=== PATIENT | male | born 1990 | race Caucasian/White ===

== ENCOUNTER 2024-07-12 18:29 | Emergency (ER) | payer OTHER ==
[2024-07-12] MEDS: Acetaminophen 325 MG Tab PO ONE (19:54)
[2024-07-12] MEDS: Diphtheria,Pertussis(Acell),Tetanus Vaccine 0.5 ML Syringe IM ONE (19:55)
== END 2024-07-12 22:30 | disposition home or self-care (01) ==
LOC: JD.ED 18:29
DX: S62.002A Unspecified fracture of navicular [scaphoid] bone of left wrist, initial encounter for closed fracture (principal); S01.81XA Laceration without foreign body of other part of head, initial encounter; Z23 Encounter for immunization; V28.09XA Other motorcycle driver injured in noncollision transport accident in nontraffic accident, initial encounter
CPT/HCPCS: 12013; 29125; 73090; 73130; 90471; 90715; 99284; A9270